=== PATIENT | female | born 1990 | race Caucasian/White ===

== ENCOUNTER 2018-07-19 13:45 | Inpatient (IN) | payer OTHER ==
[2018-07-19] MEDS ORDERED: AMPICILLIN - 2 GM in SODIUM CHLORIDE 100 ML IVPB ONE (14:00)
[2018-07-19] MEDS ORDERED: ELECTROLYTE-148 SOLN 1,000 ML IV SCH ×2 (15:00→17:30)
[2018-07-19 15:42] LABS: BASO % 0.2 % (0-2.0); EOS % 0.1 % (0-4.5); HEMATOCRIT 28.8 % (32.4-45.2); LYMPH % 10.7 % (8-40); MCH 29.1 pg (25.7-33.7); MCHC 34.8 g/dl (32.0-36.0); MEAN CELL VOLUME 83.7 fl (80-96); MEAN PLT VOLUME 8.4 fl (7.5-11.1); MONO % 4.1 % (3.8-10.2); NEUT % 84.9 % (42.8-82.8); PLATELET COUNT 254 K/MM3 (134-434); RBC 3.44 M/mm3 (3.60-5.2); RDW 14.8 % (11.6-15.6); WHITE BLOOD COUNT 12.4 K/mm3 (4.0-10.0)
[2018-07-19 15:51] VITALS: BMI 30.8
[2018-07-19] MEDS ORDERED: TUBERCULIN PPD 5 TU/0.1ML SYRINGE (IN PATIENT USE ONLY) ID ONE (16:00)
[2018-07-19 16:09] LABS: ALBUMIN 2.6 g/dl (3.4-5.0); ALK PHOS 170 U/L (45-117); ANION GAP 11 MMOL/L (8-16); BILIRUBIN,TOTAL 0.3 mg/dL (0.2-1); BLOOD UREA NITROGEN 8 mg/dL (7-18); CALCIUM 8.2 mg/dL (8.5-10.1); CHLORIDE 103 mmol/L (98-107); CO2 22 mmol/L (21-32); CREATININE 0.4 mg/dL (0.55-1.3); GLUCOSE,RANDOM 94 mg/dL (74-106); POTASSIUM 3.6 mmol/L (3.5-5.1); SGOT/AST 18 U/L (15-37); SGPT/ALT 22 U/L (13-61); SODIUM 136 mmol/L (136-145)
[2018-07-19 16:22] LABS: INR 0.98 (0.83-1.09); PROTHROMBIN TIME (PATIENT) 11.6 SEC (9.7-13.0)
[2018-07-19 16:25] LABS: ACTIVATED PTT 24.5 SECONDS (25.2-36.5)
[2018-07-19] MEDS ORDERED: PROMETHAZINE HCL 25 MG/1 ML VIAL ONE (16:30)
[2018-07-19] MEDS ORDERED: BUTORPHANOL TARTRATE 1 MG/ML VIAL ONE ×2 (16:30)
[2018-07-19] MEDS ORDERED: BUTORPHANOL TARTRATE 1 MG/ML VIAL IVPB ONE (17:00)
[2018-07-19] MEDS ORDERED: PROMETHAZINE HCL 25 MG/1 ML VIAL IVPB ONE (17:00)
[2018-07-19 17:11] LABS: URINE APPEARANCE CLEAR; URINE BILIRUBIN NEGATIVE (<2.0 mg/dL); URINE COLOR YELLOW; URINE GLUCOSE (UA) NEGATIVE (NEGATIVE); URINE KETONE 1+ (NEGATIVE); URINE LEUK ESTERASE NEGATIVE (NEGATIVE); URINE NITRITE NEGATIVE (NEGATIVE); URINE PROTEIN NEGATIVE (NEGATIVE); URINE UROBILINOGEN NEGATIVE mg/dL (0.2-1.0)
[2018-07-19 17:21] LABS: URINE MUCUS FEW
--- NOTE | 2018-07-19 17:35 | HP ---
Past Medical History - Admission Chief Complaint: Uterine contractions History of Present Illness: 27yo @ 39.5wks by LMP, with IVAN 07/20/2018. Received care in [place]; moved here around 07/09. Has copy of records , but no ultrasound reports. Stated IVAN by teresa 07/18 Seen yesterday in triage for painful ctx, was 70/1/-3, posterior and discharged home Presented again with painful contractions, no VB. No LOF. +FM. + movement. History Source: Patient Limitations to Obtaining History: No Limitations - Past Medical History SHORT GOODS DRIER: No: Alzheimer's, CVA, Dementia, Migraine, Multiple Sclerosis, Peripheral Neuropathy, Parkinson's, Seizure, Syncope, TIA, Vertigo, Other Cardiovascular: No: AFIB, Aneurysm, Aortic Insufficiency, Aortic Stenosis, CAD, CHF, Deep Vein Thrombosis, HTN, Hyperlipdemia, RI, Mitral Insufficiency, Mitral Stenosis, Murmur, Pulmonary Hypertension, Other Pulmonary: No: Asthma, Bronchitis, Cancer, COPD, O2 Dependent, Pneumonia, Previously Intubated, Pulmonary Embolus, Pulmonary Fibrosis, Sleep Apnea, Other Gastrointestinal: No: Ascites, Cancer, Constipation, Crohn's Disease, Diverticulitis, Diverticulosis, Esophageal Varices, Gastritis, GERD, GI Bleed, Hemorrhoids, Hiatal Hernia, Inflamatory Bowel Disease, Irritable Bowel Disease, Pancreatitis, Peptic Ulcer Disease, Ulcerative Colitis, Other Hepatobiliary: No: Cirrhosis, Cholelithiasis, Cholecystitis, Choledocholithiasis , Hepatitis A, Hepatitis B, Hepatitis C, Other Renal/: No: Renal Failure, Renal Inusuff, BPH, Cancer, Hematuria, Hemodialysis , Neurogenic Bladder, Renal Calculi, UTI, Other Reproductive: No: Ectopic , Endometriosis, Fibroids, PID, Polycystic Ovary Syndrome, Postmenopausal, Other ...: 3 ...Para: 1 ...Term: 1 ...: 0 ...Spon : 1 ...Induced : 0 ...Multiple Gestation: 0 ...LMP: 09/26/17 ... Weeks Gestation by Dates: 39.6 ...EDC by Dates: 07/20/18 ...EDC by Sono: 07/17/18 Heme/Onc: Yes: Anemia - Past Surgical History Past Surgical History: Yes: Tonsillectomy Hx Myomectomy: No Hx Transabdominal Cerclage: No - Smoking History Smoking history: Never smoked Have you smoked in the past 12 months: No - Alcohol/Substance Use Hx Alcohol Use: No History of Substance Use: reports: None - Social History History of Recent Travel: No Home Medications - Allergies Allergies/Adverse Reactions: Allergies Allergy/AdvReac Type Severity Reaction Status Date / Time No Known Drug Allergies Allergy Verified 07/19/18 14:38 peanut Allergy Swelling Verified 07/19/18 14:38 - Home Medications Home Medications: Ambulatory Orders Ferrous Sulfate 325 mg PO DAILY 07/18/18 Vitamins (Sjr) - 1 tab PO DAILY 07/18/18 Albuterol Sulfate Inhaler - [Ventolin Hfa Inhaler -] 1 - 2 inh PO Q4H PRN Physical Exam - Maternity Vital Signs: Vital Signs Temperature 98.3 F 07/19/18 17:00 Pulse Rate 101 H 07/19/18 17:00 Respiratory Rate 18 07/19/18 17:00 Blood Pressure 127/59 L 07/19/18 17:00 O2 Sat by Pulse Oximetry (%) Constitutional: Yes: Well Nourished, No Distress, Calm - Abdominal Exam/OB Number of Fetuses: Single Presentation: Vertex Contractions: Yes Regularity: Regular Intensity: Moderate Monitor Mode: External Category: I Accelerations: Uniform Decelerations: None - Vaginal Exam/OB Vaginal Bleediing: No Dilatation (cm): 4 Effacement (%): 50 Amniotic Membrane Status: Intact Presentation: Vertex/Position Station: -3 - Physical Exam Edema: No - Labs Lab Results: CBC, BMP 07/19/18 15:10 07/19/18 15:10 Assessment/Plan 27yo @ 39.5wks here in labor Admit to L&D NPO, IVFs Stadol, epidural Urine drug screen Social work consult given housing issues (? homelessness) Anticipate Terri Verdugo MD
[2018-07-19 17:43] LABS: COCAINE, UR NEGATIVE ng/ml (CUTOFF=300); METHADONE, UR NEGATIVE ng/ml (CUTOFF=300); OPIATES, URI NEGATIVE ng/ml (CUTOFF=300); PHENCYCLIDINE,URINE NEGATIVE ng/ml (CUTOFF=25); URINE AMPHETAMINES NEGATIVE ng/ml (CUTOFF=500); URINE BARBITURATES NEGATIVE ng/ml (CUTOFF=200); URINE BENZODIAZEPINES NEGATIVE ng/ml (CUTOFF=200)
[2018-07-19] MEDS ORDERED: AMPICILLIN SODIUM 1 GM VIAL ONE (17:45)
[2018-07-19] MEDS: AMPICILLIN - 1 GM in SODIUM CHLORIDE 100 ML IVPB SCH ×2 (17:53→22:33)
--- NOTE | 2018-07-19 18:32 | PN ---
Progress Note, Labor Vaginal Exam #1 Labor Exam Date: 07/19/18 Heart Rate (range): Cat I Dilatation: 7 Effacement (%): 100 Amniotic Membrane Status: Ruptured Presentation: Vertex/Position Station: 0 Remarks: AROM, clears Continue Amp Epidural prn Start pitocin if ctx space Jose D Verdugo MD
[2018-07-19] MEDS ORDERED: BUPIVACAINE HCL/PF 0.25% (2.5MG/ML) 10 ML VIAL ONE ×2 (18:45→19:19)
[2018-07-19] MEDS ORDERED: OXYTOCIN 20 UNITS in 0.9% NS 20 UNIT/1,000 ML INFUS.BAG IV ONE ×2 (19:22→22:40)
[2018-07-19] MEDS ORDERED: LIDOCAINE HCL 1% PRESERVATIVE FREE - 30ML VIAL ONE (19:22)
--- NOTE | 2018-07-19 19:24 | PN ---
Progress Note, Labor Vaginal Exam #2 Labor Exam Date: 07/19/18 Heart Rate (range): Cat I Dilatation: 10 Effacement (%): 100 Amniotic Membrane Status: Ruptured Presentation: Vertex/Position Station: +2 Remarks: Pt s/p epidural, complaining of rectal pressure Will start pushing Terri Verdugo MD
[2018-07-19] MEDS ORDERED: BENZOCAINE 28 GM HEMORRHOIDAL OINTMENT TP PRN (20:15)
[2018-07-19] MEDS ORDERED: WITCH HAZEL 50% (TUCKS) 40 PAD/JAR PAD TP PRN (20:15)
[2018-07-19] MEDS ORDERED: BENZOCAINE 20% 57 GM BOTTLE TP PRN (20:15)
[2018-07-19] MEDS ORDERED: METHYLERGONOVINE MALEATE 0.2 MG/1 ML AMP IM PRN (20:15)
--- NOTE | 2018-07-19 20:15 | PN ---
Delivery - Delivery Vaginal Delivery: Spontaneous Type of Anesthesia: Epidural Episiotomy/Laceration: None EBL (cc): 250 Delivery, Single - Stages of Labor Placenta: Yes: Spontaneous - Condition of Binder Layer/Private Investigator Present: No Infant Gender: Female Position: Right, OA - [place] Feeding Plan Initial Plan: Exclusive throughout hospitalization Remarks - Remarks Remarks: of VFI from JOVANY position over intact perineum. 39 week . Epidural anesthesia. No nuchal or meconium. Spontaneous delivery of anterior shoulder. Cord clamped and cut. Infant handed off. Apgars 9/9. Weight pending. Spontaneous delivery of intact placenta with 3VC. Fundus firm. Perineum inspected, no lacerations. EBL 250. Mother and baby doing well. Terri Verdugo MD
[2018-07-19] MEDS ORDERED: OXYTOCIN 20 UNITS in 0.9% NS 20 UNIT/1,000 ML INFUS.BAG IV SCH (20:30)
[2018-07-19] MEDS: FERROUS SO4 325 MG TABLET (FP) PO SCH (23:07)
[2018-07-19] MEDS: IBUPROFEN 600 MG TABLET (FP) PO PRN (23:07)
[2018-07-19] MEDS: ACETAMINOPHEN 325 MG TABLET (FP) PO PRN (23:07)
[2018-07-20] MEDS: ACETAMINOPHEN 325 MG TABLET (FP) PO PRN ×4 (06:28→20:35)
[2018-07-20] MEDS: IBUPROFEN 600 MG TABLET (FP) PO PRN ×4 (06:29→20:37)
[2018-07-20 08:02] LABS: BASO % 0.3 % (0-2.0); EOS % 0.1 % (0-4.5); HEMOGLOBIN 9.2 GM/dL (10.7-15.3); LYMPH % 13.9 % (8-40); MCH 28.9 pg (25.7-33.7); MCHC 34.3 g/dl (32.0-36.0); MEAN CELL VOLUME 84.4 fl (80-96); MEAN PLT VOLUME 8.3 fl (7.5-11.1); MONO % 8.8 % (3.8-10.2); NEUT % 76.9 % (42.8-82.8); PLATELET COUNT 252 K/MM3 (134-434); RDW 14.6 % (11.6-15.6); WHITE BLOOD COUNT 14.5 K/mm3 (4.0-10.0)
[2018-07-20] MEDS: PRENATAL VITAMINS W/ FOLIC ACID TABLET (FP) PO SCH (10:34)
[2018-07-20] MEDS: FERROUS SO4 325 MG TABLET (FP) PO SCH ×2 (10:34→22:13)
--- NOTE | 2018-07-20 11:51 | PN ---
Post Progress Note Type of Delivery: Vital Signs: Vital Signs Temperature 98.5 F 07/20/18 02:00 Pulse Rate 107 H 07/20/18 06:00 Respiratory Rate 18 07/20/18 06:00 Blood Pressure 135/74 07/20/18 06:00 O2 Sat by Pulse Oximetry (%) 100 07/19/18 21:05 Uterus: Yes: Fundus below umbilicus Incision: Yes: Dressing dry and intact Abdomen/GI: Yes: Abdomen soft Lochia: Yes: Rubra Lochia, amount: Small Extremities: Yes: Calves non-tender Perineum: Yes: Intact Activity: Ambulating (Doing well. No issues overnight) - Labs Labs: CBC WBC 14.5 K/mm3 (4.0-10.0) H 07/20/18 06:20 RBC 3.20 M/mm3 (3.60-5.2) L 07/20/18 06:20 Hgb 9.2 GM/dL (10.7-15.3) L 07/20/18 06:20 Hct 27.0 % (32.4-45.2) L 07/20/18 06:20 MCV 84.4 fl (80-96) 07/20/18 06:20 MCH 28.9 pg (25.7-33.7) 07/20/18 06:20 MCHC 34.3 g/dl (32.0-36.0) 07/20/18 06:20 RDW 14.6 % (11.6-15.6) 07/20/18 06:20 Plt Count 252 K/MM3 (134-434) 07/20/18 06:20 MPV 8.3 fl (7.5-11.1) 07/20/18 06:20 Absolute Neuts (auto) 11.1 K/mm3 (1.5-8.0) H 07/20/18 06:20 Neutrophils % 76.9 % (42.8-82.8) 07/20/18 06:20 Lymphocytes % 13.9 % (8-40) D 07/20/18 06:20 Monocytes % 8.8 % (3.8-10.2) D 07/20/18 06:20 Eosinophils % 0.1 % (0-4.5) 07/20/18 06:20 Basophils % 0.3 % (0-2.0) 07/20/18 06:20 Nucleated RBC % 0 % (0-0) 07/20/18 06:20 Assessment/Plan 27yo s/p Routine PP care Labs reviewed D/C to home tomorrow Terri Verdugo MD
[2018-07-20] MEDS ORDERED: SENNOSIDES/DOCUSATE COMBO (SENNA PLUS) TABLET (UD) PO PRN (22:00)
[2018-07-21] MEDS: IBUPROFEN 600 MG TABLET (FP) PO PRN ×3 (00:57→12:12)
[2018-07-21] MEDS: ACETAMINOPHEN 325 MG TABLET (FP) PO PRN ×3 (00:57→12:13)
--- NOTE | 2018-07-21 07:30 | DS ---
Physical Examination Vital Signs: Vital Signs Temperature 97.9 F 07/20/18 22:00 Pulse Rate 103 H 07/20/18 22:00 Respiratory Rate 18 07/20/18 22:00 Blood Pressure 126/66 07/20/18 22:00 O2 Sat by Pulse Oximetry (%) 100 07/19/18 21:05 Constitutional: Yes: Well Nourished, No Distress, Calm Eyes: Yes: WNL, Conjunctiva Clear, EOM Intact HENT: Yes: WNL, Atraumatic, Normocephalic Neck: Yes: WNL, Supple, Trachea Midline Cardiovascular: Yes: WNL, Regular Rate and Rhythm Respiratory: Yes: WNL, Regular, CTA Bilaterally Gastrointestinal: Yes: WNL, Normal Bowel Sounds Musculoskeletal: Yes: WNL Extremities: Yes: WNL Edema: No Integumentary: Yes: WNL Neurological: Yes: WNL, Alert, Oriented ...Motor Strength: WNL Psychiatric: Yes: WNL Labs: CBC, BMP 07/20/18 06:20 07/19/18 15:10 Discharge Summary Reason For Visit: LABOR Procedures: Principal: Other Procedures: Hospital Course: Patient presented in active labor She had an uncomplicated vaginal delivery Her course was uncomplicated She was discharged home on PPD#2 Condition: Stable - Instructions Referrals: Terri Verdugo MD [Staff Physician] - Disposition: HOME - Home Medications Comprehensive Discharge Medication List: Ambulatory Orders Ferrous Sulfate 325 mg PO DAILY 07/18/18 Vitamins (Sjr) - 1 tab PO DAILY 07/18/18 Albuterol Sulfate Inhaler - [Ventolin Hfa Inhaler -] 1 - 2 inh PO Q4H PRN Ibuprofen 600 mg PO Q6H PRN #30 tablet 07/20/18
[2018-07-21] MEDS: PRENATAL VITAMINS W/ FOLIC ACID TABLET (FP) PO SCH (09:39)
[2018-07-21] MEDS: FERROUS SO4 325 MG TABLET (FP) PO SCH (09:39)
[2018-07-21 11:12] VITALS: BP 141/77; PULSE 101; TEMP 98.4
[2018-07-21 12:15] LABS: HBsAG SCREEN Negative (Negative)
[2018-07-21 18:13] LABS: RUBELLA IgG ANTIBODY 2.35 index (Immune >0.99)
== END 2018-07-21 13:50 | disposition home or self-care (01) | DRG 560 ==
LOC: JLDR 13:45 → J3W 22:44
PROVIDERS: ADMIT Obstetrics & Gynecology; ATTEND Obstetrics & Gynecology
PROC: 10E0XZZ Delivery of Products of Conception, External Approach (ICD-10-PCS; principal; 2018-07-19)
DX: O80 Encounter for full-term uncomplicated delivery (principal); Z3A.39 39 weeks gestation of pregnancy; Z37.0 Single live birth
CPT/HCPCS: 36415; 59409; 80053; 80307; 81003; 81015; 85025; 85610; 85730; 86593; 86762; 86850; 86900; 86901; 87340; 87389